=== PATIENT | male | born 1985 | race Caucasian/White ===

== ENCOUNTER 2019-04-26 15:03 | Emergency (ER) | payer OTHER, SELFPAY ==
[2019-04-26 15:06] VITALS: BP 127/72; PULSE 62; RESP 14; TEMP 36.6; O2SAT 95
[2019-04-26] MEDS: Balanced Salt Solution 15 ML BTL (15:28)
[2019-04-26] MEDS: Fluorescein STRIPS 100/BOX 1 MG (15:29)
[2019-04-26] MEDS: Tetracaine 0.5% 4 ML BTL (15:29)
--- NOTE | 2019-04-26 15:31 | W.ED.GENAD ---
Discharge Plan Disposition Patient Disposition: HOME Discharge Details Chief Complaint: EyeProblem Clinical Impression: Corneal abrasion, right Primary Care Provider: None,None ED Provider: Bryan Durham Home Meds and New Rx's Prescriptions: New erythromycin 5 mg/gram (0.5 %) ointment 0.5 inch OP QID 5 Days Qty: 3.5 RF: 0 Discharge Instructions Instructions: Erythromycin (Into the eye), Corneal Abrasion (ED) Additional Instructions: Apply 0.5 in ribbon to right eye four times a day for 5 days. Please follow-up with an vector control specialist. Call today to arrange timely follow-up. Return to the ER for worsening or new concerning symptoms. Referrals: [facility] [Outside] Medical Decision Making 33yo m with rt eye inflammation after eyelash removal yesterday. Vision intact. Tetracaine applied and resolution of discomfort. Eye examined with mahan lamp and slit lamp after application of flourecein. Small corneal abrasion 6:00. Plan to start erythromycin. Follow-up vector control specialist. Usual and customary discharge instructions were provided. HPI General Mode of arrival: ambulatory. Date/Time Provider Initiated Documentation: 04/26/19 15:09. Limitations to Documentation: no limitations. Information obtained by: patient. HPI Narrative: 33yo m here with right eye inflammation since yesterday. Patient had eyelash in right eye. He flushed his eye and removed lash with his fingers yesterday. He has had continued sensation of foreign body in eye. He flushed eye ~15x with tap water. Discomfort is moderate to severe. Associated runny nose and mild GUNTER. No visual changes. Related Data Home Medications Medication Instructions Recorded Confirmed erythromycin 0.5 inch OP QID 5 Days #3.5 gm 04/26/19 Previous Rx's Medication Instructions Recorded erythromycin 0.5 inch OP QID 5 Days #3.5 gm 04/26/19 Allergies Allergy/AdvReac Type Severity Reaction Status Date / Time No Known Allergies Allergy Unverified 04/26/19 15:09 General Stated Complaint: EyeProblem ANA: 4 Review of Systems Eyes Reports as per HPI ENT Reports as per HPI [facility] Social History Smoking/Tobacco Use Status: Never Alcohol Intake: current Alcohol Intake frequency: a few times a month Drug use: Never Substance use type: does not use Do you feel safe at home: Yes Do you feel safe in your relationship?: Yes Exam Const General: cooperative and healthy appearing [facility] General nose exam: external nose normal and no nasal discharge Eyes Alignment and Position: alignment normal Periorbital: periorbital findings normal Eyelids: eyelids normal Conjunctivae: conjunctival abnormality right conjunctival injection Cornea: corneas abnormal on the right fluorescein used and abrasion at the following clock position (6) Pupils: PERRL EOM: EOM intact bilaterally Direct ophthalmoscopy: no papilledema Neuro General: alert and awake Cognition: normal cognition Speech: speech normal Course Vital Signs Temperature 36.6 C 04/26/19 15:06 Pulse 62 04/26/19 15:06 Respiratory Rate 14 04/26/19 15:06 Blood Pressure 127/72 04/26/19 15:06 Pulse Oximetry 95 04/26/19 15:06 Temperature 36.6 C 04/26/19 15:06 Temperature Source Temporal Artery Scan 04/26/19 15:06 Pulse 62 04/26/19 15:06 Respiratory Rate 14 04/26/19 15:06 Respiratory Effort Non-Labored 04/26/19 15:08 Blood Pressure 127/72 04/26/19 15:06 Blood Pressure Position Sitting 04/26/19 15:06 Pulse Oximetry 95 04/26/19 15:06 Oxygen Delivery Method Room Air 04/26/19 15:06 Oxygen Flow Rate 0 04/26/19 15:06 Pain Level 3 04/26/19 15:06
[2019-04-26] MEDS: Erythromycin Ophth Oint 3.5 GM TUBE OD (15:48)
--- NOTE | 2019-04-26 15:52 | ED.GENADUL_ITS ---
Discharge Plan Disposition Patient Disposition: HOME Discharge Details Chief Complaint: EyeProblem Clinical Impression: Corneal abrasion, right Primary Care Provider: None,None ED Provider: Bryan Durham Home Meds and New Rx's Prescriptions: New erythromycin 5 mg/gram (0.5 %) ointment 0.5 inch OP QID 5 Days Qty: 3.5 RF: 0 Discharge Instructions Instructions: Erythromycin (Into the eye), Corneal Abrasion (ED) Additional Instructions: Apply 0.5 in ribbon to right eye four times a day for 5 days. Please follow-up with an eyeglass cutter. Call today to arrange timely follow-up. Return to the ER for worsening or new concerning symptoms. Referrals: [facility] [Outside] Medical Decision Making 33yo m with rt eye inflammation after eyelash removal yesterday. Vision intact. Tetracaine applied and resolution of discomfort. Eye examined with mahan lamp and slit lamp after application of flourecein. S mall corneal abrasion 6:00. Plan to start erythromycin. Follow-up eyeglass cutter. Usual and customary discharge instructions were provided. HPI General Mode of arrival: ambulatory . Date/Time Provider Initiated Documentation: 04/26/19 15:09 . Limitations to Documentation: no limitations . Information obtained by: patient . HPI Narrative: 33yo m here with right eye inflammation since yesterday. Patient had eyelash in right eye. He flushed his eye and removed lash with his fingers yesterday. He has had continued sensation of foreign body in eye. He flushed eye ~15x with tap water. Discomfort is moderate to severe. Associated runny nose and mild GUNTER. No visual changes. Related Data Home Medications Medication Instructions Recorded Confirmed erythromycin 0.5 inch OP QID 5 Days #3.5 gm 04/26/19 Previous Rx's Medication Instructions Recorded erythromycin 0.5 inch OP QID 5 Days #3.5 gm 04/26/19 Allergies Allergy/AdvReac Type Severity Reaction Status Date / Time No Known Allergies Allergy Unverified 04/26/19 15:09 General Stated Complaint: EyeProblem ANA: 4 Review of Systems Eyes Reports as per HPI ENT Reports as per HPI [facility] Social History Smoking/Tobacco Use Status: Never Alcohol Intake: current Alcohol Intake frequency: a few times a month Drug use: Never Substance use type: does not use Do you feel safe at home: Yes Do you feel safe in your relationship?: Yes Exam Const General: cooperative and healthy appearing [facility] General nose exam: external nose normal and no nasal discharge Eyes Alignment and Position: alignment normal Periorbital: periorbital findings normal Eyelids: eyelids normal Conjunctivae: conjunctival abnormality right conjunctival injection Cornea: corneas abnormal on the right fluorescein used and abrasion at the following clock position (6) Pupils: PERRL EOM: EOM intact bilaterally Direct ophthalmoscopy: no papilledema Neuro General: alert and awake Cognition: normal cognition Speech: speech normal Course Vital Signs Temperature 36.6 C 04/26/19 15:06 Pulse 62 04/26/19 15:06 Respiratory Rate 14 04/26/19 15:06 Blood Pressure 127/72 04/26/19 15:06 Pulse Oximetry 95 04/26/19 15:06 Temperature 36.6 C 04/26/19 15:06 Temperature Source Temporal Artery Scan 04/26/19 15:06 Pulse 62 04/26/19 15:06 Respiratory Rate 14 04/26/19 15:06 Respiratory Effort Non-Labored 04/26/19 15:08 Blood Pressure 127/72 04/26/19 15:06 Blood Pressure Position Sitting 04/26/19 15:06 Pulse Oximetry 95 04/26/19 15:06 Oxygen Delivery Method Room Air 04/26/19 15:06 Oxygen Flow Rate 0 04/26/19 15:06 Pain Level 3 04/26/19 15:06
== END 2019-04-26 15:55 | disposition home or self-care (01) ==
PROVIDERS: Emergency Provider Student in an Organized Health Care Education/Training Program
DX: S05.01XA Injury of conjunctiva and corneal abrasion without foreign body, right eye, initial encounter (principal); X58.XXXA Exposure to other specified factors, initial encounter
CPT/HCPCS: 99283

== ENCOUNTER 2024-03-30 05:08 | Outpatient (CLI) | payer OTHER, SELFPAY ==
[2024-03-30 08:01] LABS: HGB 15.3 g/dL (13.5-17.5)
[2024-03-30 08:33] LABS: ALT 28 U/L (16-63); AST 22 U/L (15-37); Albumin 4.3 g/dL (3.4-5.0); Alkaline Phosphatase 73 U/L (46-116); Anion Gap 6.7 mmol/L (3-11); BUN 16 mg/dL (7-18); Bilirubin, Total 2.2 mg/dL (0.2-1.0); CO2 29.3 mmol/L (21.0-32.0); CREATININE 1.2 mg/dL (0.70-1.30); Calcium 9.3 mg/dL (8.5-10.1); Calculated LDL 84 mg/dL (<100); Chloride 105 mmol/L (98-107); Cholesterol 184 mg/dL (<200); Glucose 99 mg/dL (74-106); HDL Cholesterol 94 mg/dL (40-60); Sodium 141 mmol/L (136-145); Total Protein 7.5 g/dL (6.4-8.2); Triglyceride 33 mg/dL (<150)
[2024-03-30 08:52] LABS: Vitamin D 25 Total 31.6 ng/mL (30-100)
== END 2024-03-30 05:09 | disposition home or self-care (01) ==
LOC: LBO 05:08
PROVIDERS: PCP Student in an Organized Health Care Education/Training Program; Visit Provider Student in an Organized Health Care Education/Training Program
DX: Z13.220 Encounter for screening for lipoid disorders (principal); Z91.89 Other specified personal risk factors, not elsewhere classified; Z13.1 Encounter for screening for diabetes mellitus; K90.9 Intestinal malabsorption, unspecified
CPT/HCPCS: 36415; 80053; 80061; 82306; 85018

== ENCOUNTER 2024-04-29 08:34 | Outpatient (REF) | payer OTHER, SELFPAY ==
--- NOTE | 2024-04-29 08:15 | SKI_PTH ---
PATIENT: Antonio Segovia LOC: [facility] U#:[id number] AGE/SX: 38/M ROOM: RE04/29/[address]: Deangelo Mojica : 1985 BED: DIS: 04/29/2024 SPEC #: [id number] RECD: 04/29/24 12:56 STATUS: SAMUEL REAbad #: [id number] OSCAR: 04/29/24 08:[address]: Deangelo Mojica DEPT: Surgical Specimen RECD BY: Corie Day ENTERED: 04/29/24 12:57 SP TYPE: JUAN JOHNSON DR: Brigitte Perkins DO Tissues: 1 - SKIN BIOPSY(SHAVE/PUNCH) Procedures: SKIN LEVEL 4 Comments: [id number]
== END 2024-04-29 08:35 | disposition home or self-care (01) ==
LOC: LBN 08:34
PROVIDERS: PCP Student in an Organized Health Care Education/Training Program; Visit Provider Student in an Organized Health Care Education/Training Program
DX: M75.91 Shoulder lesion, unspecified, right shoulder (principal)
CPT/HCPCS: 88305